=== PATIENT | female | born 1945 | race Caucasian/White ===

== ENCOUNTER 2020-08-29 06:04 | Day surgery (SDC) | payer OTHER ==
[~2020-08-29] VITALS: Ht 162.6 cm; Wt 102.1 kg
--- NOTE | ~2020-08-29 | O ---
Formerly [facility] [place] [address] OPERATIVE REPORT Name: SEBASTIEN MELCHOR Room #: 150-1 [facility]..#: [id number] Admission: 08/29/20 Attend Phys: Hector Zelaya MD Discharge: Date of : 47 Report #: [id number] THIS REPORT FOR: cc: Kameron Killian MD,Kameron Zelaya,Hector Hawkins MD ~ DOC #: [id number] cc: Kameron Killian MD, Yobani Zelaya MD DATE OF SERVICE: 08/29/2020 PREOPERATIVE DIAGNOSIS: Lesion of left lower lid, medial canthus. POSTOPERATIVE DIAGNOSIS: Lesion of left lower lid, medial canthus. PROCEDURE: Excision of lesion of left lower lid and medial canthus with frozen sections and myocutaneous flap repair of defect. SURGEON: Hector Zelaya MD UNIT DIRECTOR: None. ANESTHESIOLOGIST: HIWOT. COMPLICATIONS: None. INDICATIONS FOR SURGERY: This pleasant 75-year-old woman has a large verrucoid lesion in her left medial canthus, which extends up on to her upper lid. The lesion appears to most likely be benign in nature, but because of its massive size, it is being excised in the operating room with frozen sections. Informed consent was obtained to include but not limited to the potential risk for loss of vision, bleeding, infection, and should the lesion be frankly neoplastic, further surgery may be necessary as reading these in frozen sections is sometimes challenging. DESCRIPTION OF PROCEDURE: The patient was taken to the operating room where 2% Xylocaine with epinephrine mixed with equal parts of 0.75% Marcaine with Wydase was administered transcutaneously to the left lower lid, the left medial canthus and the glabella. The patient was subsequently prepped and draped in the usual sterile fashion. A fine tip skin marking pen was then utilized to outline the lesion at its base. The incision was then made with a Mercedes scissor and carried around 360 degrees around the lesion. It was from the underlying orbicularis muscle. It was then oriented on a drawing for the waiting pathologist as hemostasis was achieved in the field with diligent pinpoint monopolar cautery. The pathologist snap froze that tissue and could [address] [address] OPERATIVE REPORT Name: SEBASTIEN MELCHOR Room #: 150-1 [facility] M.R.#: [id number] Admission: 08/29/20 Attend Phys: Hector Zelaya MD Discharge: Date of : 47 Report #: [id number] not tell me specifically whether the lesion was frankly neoplastic, which was not surprising because these are difficult reads. She did feel that the lesion was most likely a verruca. With that understanding, the decision was made to hold off on any further excision since no gross lesion persisted and there was not a high risk in my mind of invasive cancer. A myocutaneous flap was then developed superolaterally to correct the defect. Hemostasis was then re-achieved. The flap was then advanced and secured with multiple interrupted 6-0 plain gut sutures closing the wound parallel to relaxed skin tension line. The wound was then cleaned and dressed with erythromycin ophthalmic ointment. The patient subsequently transported to the recovery area, having tolerated the procedures well with no anesthetic or operative complications being noted. Hector Zelaya MD WLW/KDA By: [id number] Hector Zelaya MD /nt
[~2020-08-29 06:04] MED LIST: ALLOPURINOL 10100 M3 PO; CHILDREN'S ASPI81 M1 PO; COMPLETE SENIO1 EACH PO; GABAPENTIN600 M1 PO; GLUCOPHAGE XR750 M1 PO; KRILL OIL 1,001 EAC1 PO; LOTENSIN HCT 21 EAC3 PO; PRILOSEC OTC20 MG PO; SONATA5 M1 PO; SYNTHROID100 MC1 PO; TOPROL XL100 MG PO; VENTOLIN HFA 1818 GM INH; VITAMIN B COMP1 EACH PO; VITAMIN D350 MCG PO
[2020-08-29 10:12] VITALS: BP 115/46
--- NOTE | 2020-08-30 18:06 | PATH ---
[facility] [place] [address] PATHOLOGY RPT PROCEDURE Name: SEBASTIEN MELCHOR Room #: DEP [facility]..#: [id number] Admission: 08/29/20 Date of : 47 Discharge: 08/29/20 Report #: [id number] Path Case #: [id number] [facility] Accession Number: [id number] . 01 Material submitted: . eyelid - LESION LEFT LOWER EYELID,MEDIAL CANTHUS-FS. Modifiers: left, lower . 02 Frozen section diagnosis: . FROZEN SECTION DIAGNOSIS: (Melissa Phelps MD) . FSA1, lesion left lower eyelid/medial canthus, excision: - Verrucoid lesion, present at supero-medial and supero-lateral margins. - Side margins at inferior end of the specimen negative for invasive carcinoma. . Findings are discussed with Dr. Hector Zelaya in OR6 at [facility] and a written report is placed in the patient's chart. . . Frozen section performed at [facility], [address] [place], [place] [address]colton Srivastava, [place] [address]. . . FROZEN SECTION GROSS DESCRIPTION: Specimen is received fresh from the OR labeled with the patient's name, and "lesion left lower eyelid, medial canthus for frozen section", consists of an inverted triangular specimen measuring 0.9 x 0.9 cm. The base is towards the inferior end of the specimen for this triangular excision. The specimen is oriented as superior, lateral, inferior and medial. The superior to lateral margin is inked black, the infero-medial margin is inked blue, and the supero-medial margin is inked green. At this point, the specimen is serially sectioned into four pieces and submitted entirely for frozen section along with an additional 0.2 cm fragment submitted separately by Dr. Zelaya representing the inferior end of the specimen. The specimen is entirely submitted for frozen section as FSA1, the frozen section remnant is submitted for permanent sections as A1. (IUV:raza; 08/29/2020) IZV/QMS . 02 Diagnosis: Skin, lesion left lower eyelid, medial canthus, excision: - Verrucoid keratosis, inflamed and irritated. - No definite malignant features identified (see comment). (IUV:member certification manager; 08/30/2020) MBR 08/30/[address] [address] PATHOLOGY RPT PROCEDURE Name: SEBASTIEN MELCHOR Room #: DEP [facility] Manuel#: [id number] Admission: 08/29/20 Date of : 47 Discharge: 08/29/20 Report #: [id number] Path Case #: [id number] . 02 Comment: Findings are suggestive of verrucoid keratosis. The differential diagnosis includes a well-differentiated squamous cell carcinoma; however, no definite mitotic figures, or nuclear atypia are appreciated. The interpretation of the morphologic features is significantly limited by frozen section artifact. Please correlate clinically. (IUV:member certification manager; 08/30/2020) . 02 Electronically signed: . Melissa Phelps MD, Pathologist NPI- [id number] . 01 Gross description: . PLEASE SEE GROSS DESCRIPTION UNDER FROZEN SECTION DIAGNOSIS. /QMS 08/29/2020 1245 Local . 02 Pathologist provided ICD-10: L57.0 . 02 CPT . 093329, 655609 Specimen Comment: A courtesy copy of this report has been sent to [phone], [phone] Specimen Comment: [phone] Specimen Comment: Report sent to / DR ALVAREZ Performed at: [address], [place], [place] [id number] MD Armando Gaming MD Phone: [phone] Performed at: [address] [id number] MD Melissa Phelps MD Phone: [phone]
== END 2020-08-29 09:08 | disposition home or self-care (01) ==
LOC: OR 06:04 → TBA 06:07 → OR 09:08
PROVIDERS: ATTEND Ophthalmology
DX: L57.0 Actinic keratosis (principal); I10 Essential (primary) hypertension; E11.9 Type 2 diabetes mellitus without complications; E03.9 Hypothyroidism, unspecified; G47.30 Sleep apnea, unspecified; F32.9 Major depressive disorder, single episode, unspecified; K21.9 Gastro-esophageal reflux disease without esophagitis; H40.9 Unspecified glaucoma; Z98.890 Other specified postprocedural states; Z79.899 Other long term (current) drug therapy; Z88.8 Allergy status to other drugs, medicaments and biological substances
CPT/HCPCS: 50010; 50101; 50386; 50398; 51636; 56531; 62110; 62850; 70005